=== PATIENT | female | born 1985 | race Caucasian/White ===

== ENCOUNTER → 2018-10-24 | Outpatient (CLI) | payer BC ==
--- NOTE | 2018-10-27 10:41 | USB ---
Reason for exam: clinical finding. History: Patient had 1st child at 28. Family history of breast cancer in paternal aunt Left breast cyst aspiration over 10 years ago benign. US Breast LT Left complete breast ultrasound includes all four quadrants, the retroareolar region and axilla. Finding demonstrates no cystic or solid lesion seen. These results were verbally communicated with the patient and result sheet given to the patient on 10/24/18. ASSESSMENT: Benign, BI-RAD 2 RECOMMENDATION: Clinical management of the left breast.
--- NOTE | 2018-10-28 11:38 | USB ---
Reason for exam: clinical finding. History: Patient is nulliparous. Family history of breast cancer. Physical Findings: Nurse did not find any significant physical abnormalities on exam. US Breast Axilla RT Right limited breast axilla ultrasound demonstrates a 2.3 x 0.9 x 1.1cm lymph node visualized. These results were verbally communicated with the patient and result sheet given to the patient on 10/24/18. ASSESSMENT: Benign, BI-RAD 2 RECOMMENDATION: Clinical management of the right breast. Manage patient on a clinical basis.
== END | disposition home or self-care (01) ==
LOC: RADMAMWWP 15:09
PROVIDERS: ATTEND Surgery
DX: N63.0 Unspecified lump in unspecified breast (principal); R22.9 Localized swelling, mass and lump, unspecified

== ENCOUNTER → 2018-10-24 | Outpatient (CLI) | payer BC ==
[2018-10-24 14:16] VITALS: BP 120/82; PULSE 87; RESP 18; BMI 32.1
--- NOTE | 2018-10-24 14:46 | P.GSHP ---
History of Present Illness H&P Date: 10/24/18 Chief Complaint: lump in her left breast Domi is a 33-year-old white female who states that approximately 2 weeks ago she noted a lump in her left breast. She is uncertain as to how long this is been present. She does not have any pain in her breast. She has not had any recent radiographic evaluation of the breast. She has no nipple discharge or skin changes. She has no history of any trauma to the breast. The lesion is located in the inferior aspect of the breast, she has had a cyst removed from this area about 14 years ago. Family History: maternal grandmother: lung cancer Hormonal History: menarche: 12 : 2, 1 child, 1 miscarriage, first born at 28, breast-fed: Negative periods: irregular BCP: none hormones: none Past surgical history: 1. Left breast cyst removed 2. Injury in her neck for an accessory salivary gland 3. ovarian cysts Past medical history: none Social history: Smoke: 3 cigarettes/day since 15 Alcohol: Negative Drugs: Negative - Constitutional Constitutional: Denies chills, Denies fever - EENT Eyes: denies blurred vision, denies pain Ears: deny: decreased hearing, tinnitus Ears, nose, mouth and throat: Denies headache, Denies sore throat - Breasts Breasts: bilateral: as per HPI - Cardiovascular Cardiovascular: Denies chest pain, Denies shortness of breath - Respiratory Respiratory: Denies cough, Denies 7 - Gastrointestinal Gastrointestinal: Denies abdominal pain, Denies diarrhea, Denies nausea, Denies vomiting - Genitourinary (Female) Genitourinary: Denies dysuria, Denies hematuria - Menstruation Menstruation: Reports cycle variable, Reports period heavy - Musculoskeletal Musculoskeletal: Denies myalgias - Integumentary Integumentary: Denies pruritus, Denies rash - Neurological Neurological: Denies numbness, Denies weakness - Psychiatric Psychiatric: Denies anxiety, Denies depression - Endocrine Endocrine: Denies fatigue, Denies weight change - Hematologic/Lymphatic Comment: none - Allergic/Immunologic Allergic/Immunologic: Reports seasonal allergies Past Medical History Past Medical History: No Reported History History of Any Multi-Drug Resistant Organisms: None Reported Additional Past Surgical History / Comment(s): neck-extra saliva gland Past Anesthesia/Blood Transfusion Reactions: No Reported Reaction Past Psychological History: No Psychological Hx Reported Smoking Status: Current every day smoker Past Drug Use History: None Reported - Past Family History Mother Family Medical History: Hypertension Father Family Medical History: Hypertension Medications and Allergies Home Medications Medication Instructions Recorded Confirmed Type No Known Home Medications 10/24/18 10/24/18 History Allergies Allergy/AdvReac Type Severity Reaction Status Date / Time No Known Allergies Allergy Verified 10/24/18 14:16 Surgical - Exam Vital Signs Pulse Resp BP Pulse Ox 87 18 120/82 98 10/24/18 14:09 10/24/18 14:09 10/24/18 14:09 10/24/18 14:09 - General well developed, well nourished, no distress - Eyes normal ocular movement - ENT no hearing loss, no congestion - Neck no masses, trachea midline - Respiratory normal respiratory effort, clear to auscultation - Cardiovascular Rhythm: regular Heart Sounds: normal: S1, S2 - Abdomen Abdomen: soft, non tender, no guarding, no rigid, no rebound - Integumentary normal turgor - Neurologic no disoriented, no combative - Musculoskeletal normal gait, normal posture - Psychiatric oriented to time, oriented to person, oriented to place, speech is normal, memory intact Breast examination: Right breast: Multiple positional exam no dominant masses or nodules of concern Right axilla: Axillary lymph node identified approximately 1-2 cm in size freely mobile Left breast: Multi-positional exam no dominant masses or nodules of concern noted other than an area in the inferior medial aspect which appears to be of increased nodularity and may represent a sebaceous cyst Left axilla: No adenopathy of concern Assessment and Plan Assessment: Impression: 1. Increased area of nodularity left breast inferior medial aspect 2. Axillary adenopathy right axilla 3. Irregular menstrual periods Plan: 1. Bilateral mammogram 2. Ultrasound right axilla, ultrasound left breast lower inner quadrant 3. Follow-up after results of mammogram and ultrasound obtained
== END ==
LOC: WWCWWP 13:52
PROVIDERS: ATTEND Surgery
DX: Z53.9 Procedure and treatment not carried out, unspecified reason (principal)

== ENCOUNTER → 2018-11-21 | Outpatient (CLI) | payer BC ==
--- NOTE | 2018-11-22 08:55 | MM ---
Reason for exam: clinical finding. History: Patient is nulliparous. Family history of breast cancer in paternal aunt at age 60. Benign excisional biopsy of the left breast, 2008. Physical Findings: Nurse did not find any significant physical abnormalities on exam. MG 3D Diag Mammo W/Cad FATMATA Bilateral CC and MLO view(s) were taken. XCCL view(s) were taken of the right breast. The breast tissue is heterogeneously dense. This may lower the sensitivity of mammography. There is no discrete abnormality. Superior anterior asymmetric density anterior left breast disperses on MLO DROSSER view. These results were verbally communicated with the patient and result sheet given to the patient on 11/21/18. ASSESSMENT: Negative, BI-RAD 1 RECOMMENDATION: Routine screening mammogram of both breasts at age 40. Patient should continue monthly self breast exams. A negative report should not preclude additional follow up of suspicious palpable abnormalities.
== END | disposition home or self-care (01) ==
LOC: RADMAMWWP 14:00
PROVIDERS: ATTEND Surgery
DX: N63.20 Unspecified lump in the left breast, unspecified quadrant (principal); N63.10 Unspecified lump in the right breast, unspecified quadrant
CPT/HCPCS: 77062; 77066

== ENCOUNTER 2019-09-07 20:06 | Outpatient (CLI) | payer BC ==
[2019-09-07] MEDS ORDERED: ONDANSETRON 4 MG/2 ML VIAL IM STA (20:48)
[2019-09-07] MEDS ORDERED: ONDANSETRON 4 MG/2 ML VIAL IVP STA (20:55)
[2019-09-07] MEDS: LACTATED RINGERS 1,000 ML IV SCH ×2 (21:04→22:47)
[2019-09-07 22:12] LABS: Appearance,Urine Cloudy (Clear); Bacteria,Urine Rare /hpf; Bilirubin,Urine Negative (Negative); Blood,Urine Negative (Negative); Color,Urine Yellow; Glucose,Urine (UA) Trace (Negative); Ketones,Urine 4+ (Negative); Leukocyte Esterase,Urine Negative (Negative); Mucus,Urine Many /hpf; Nitrite,Urine Negative (Negative); Protein,Urine 1+ (Negative); RBC,Urine 1 /hpf (0-5); Specific Gravity,Urine 1.032 (1.001-1.035); Squamous Epithelial Cell,Urine 2 /hpf (0-4); Urobilinogen,Urine <2.0 mg/dL (<2.0); WBC,Urine 3 /hpf (0-5)
[2019-09-07] MEDS ORDERED: TERBUTALINE 1 MG/ML VIAL SQ PRN (22:24)
[2019-09-07] MEDS ORDERED: LACTATED RINGERS 1,000 ML IV SCH (22:30)
[2019-09-08 01:30] VITALS: BP 128/58; PULSE 118; RESP 16; TEMP 97.7
--- NOTE | 2019-10-02 11:25 | P.MSEPDOC ---
Presenting Problems - Arrival Data Date of Arrival on Unit: 09/08/19 Time of Arrival on Unit: 20:06 Mode of Transport: Ambulatory - Complaint OB-Reason for Admission/Chief Complaint: Acute Nausea/Vomiting Medical History - Information : 3 Para: 2 Term: 0 : 0 Abortions: Spontaneous or Elective: 0 Number of Living Children: 2 - Gestational Age Gestational Age by MORRIS (wks/days): 34 Weeks and 6 Days Review of Systems - Review of Systems Constitutional: No problems Breast: No problems ENT: No problems Cardiovascular: No problems Respiratory: No problems Gastrointestinal: No problems Genitourinary: No problems Musculoskeletal: No problems Neurological: No problems Skin: No problems Vital Signs - Temperature Temperature: 97.7 F Temperature Source: Oral - Pulse Pulse Oximetery Pulse Rate: 118 Pulse Assessment Method: Pulse Oximetry - Respirations Respiratory Rate: 16 Oxygen Delivery Method: Room Air O2 Sat by Pulse Oximetry: 98 - Blood Pressure Right Arm Blood Pressure: 128/58 Blood Pressure Mean: 81 Blood Pressure Source: Automatic Cuff Medical Screen Scoring (Pre) - Cervical Exam Dilation: Exam Deferred Effacement: Exam Deferred Membranes: Intact - Uterine Contractions Frequency: N/A Duration: N/A Intensity: N/A - Maternal Vital Signs Maternal Temperature: N/A Maternal Blood Pressure: N/A Signs of Preeclampsia: N/A Maternal Respirations: N/A - Maternal Trauma Maternal Trauma: N/A - Assessment - Baby A Baseline FHR: 140 Heart Rate - NICHD Category: Category I (Normal) = 0 NST: Reactive Position: N/A Station: N/A - Total Score - Baby A Total Score - Baby A: 0 - Total Score - Baby B Total Score - Baby B: 0 - Total Score - Baby C Total Score - Baby C: 0 - Level of Risk - Baby A Level of Risk - Baby A: Low (0-5) - Level of Risk - Baby B Level of Risk - Baby B: Low (0-5) - Level of Risk - Baby C Level of Risk - Baby C: Low (0-5) Physician Notification (Pre) - Physician Notified Physician Notified Date: 09/07/19 Physician Notified Time: 20:40 New Order Received: Yes - Notification Comment Comment: Notified of nausea vomiting and contraction irritability. Notified of cervical exam closed thick and high. Disposition - Disposition OB Disposition: Triage, Discharge to home Transferred to:: home Discharge Date: 09/08/19 Discharge Time: 00:55 I agree with the RN Medical Screening Exam: Yes Risk & Benefit of care provided described in d/c instruction: Yes Diagnosis: VOMITING OF , UNSPECIFIED
== END 2019-09-08 00:55 | disposition home or self-care (01) ==
LOC: FBPOP 20:06
PROVIDERS: ATTEND Obstetrics & Gynecology Obstetrics
DX: O21.2 Late vomiting of pregnancy (principal); Z3A.34 34 weeks gestation of pregnancy
CPT/HCPCS: 99214; 96361; 96374; 81001; J3105; J2405; 59025

== ENCOUNTER 2019-09-17 13:25 | Outpatient (CLI) | payer BC ==
[2019-09-17 16:39] VITALS: BP 141/84; PULSE 91; RESP 16; TEMP 97.1
--- NOTE | 2019-10-03 07:58 | P.MSEPDOC ---
Presenting Problems - Arrival Data Date of Arrival on Unit: 09/17/19 Time of Arrival on Unit: 13:25 Mode of Transport: Ambulatory - Complaint OB-Reason for Admission/Chief Complaint: Possible Onset of Labor Medical History - Information : 3 Para: 1 Term: 1 : 0 Abortions: Spontaneous or Elective: 1 Number of Living Children: 1 - Gestational Age Gestational Age by MORRIS (wks/days): 36 Weeks and 1 Days Review of Systems - Review of Systems Constitutional: No problems Breast: No problems ENT: No problems Cardiovascular: No problems Respiratory: No problems Gastrointestinal: No problems Genitourinary: No problems Musculoskeletal: No problems Neurological: No problems Skin: No problems Vital Signs - Temperature Temperature: 97.1 F Temperature Source: Temporal Artery Scan - Pulse Right Sitting Pulse Rate: 91 Pulse Assessment Method: Automatic Cuff - Respirations Respiratory Rate: 16 Oxygen Delivery Method: Room Air - Blood Pressure Right Arm Blood Pressure: 141/84 Blood Pressure Mean: 103 Blood Pressure Source: Automatic Cuff Medical Screen Scoring (Pre) - Cervical Exam Dilation: 1-3 cm = 1 Effacement: More than 50% = 2 Membranes: Intact - Uterine Contractions Frequency: > 5 minutes apart = 1 Duration: > 40 seconds = 2 Intensity: N/A - Maternal Vital Signs Maternal Temperature: N/A Maternal Blood Pressure: N/A Signs of Preeclampsia: N/A Maternal Respirations: N/A - Maternal Trauma Maternal Trauma: N/A - Assessment - Baby A Baseline FHR: 13 Heart Rate - NICHD Category: Category I (Normal) = 0 NST: Reactive Position: N/A Station: N/A - Total Score - Baby A Total Score - Baby A: 6 - Total Score - Baby B Total Score - Baby B: 6 - Total Score - Baby C Total Score - Baby C: 6 - Level of Risk - Baby A Level of Risk - Baby A: Medium (6-9) - Level of Risk - Baby B Level of Risk - Baby B: Medium (6-9) - Level of Risk - Baby C Level of Risk - Baby C: Medium (6-9) Physician Notification (Pre) - Physician Notified Physician Notified Date: 09/17/19 Physician Notified Time: 15:22 New Order Received: Yes (d/c home) Disposition - Disposition OB Disposition: Physician follow up in office, Discharge to home Discharge Date: 09/17/19 Discharge Time: 15:25 I agree with the RN Medical Screening Exam: Yes Risk & Benefit of care provided described in d/c instruction: Yes Diagnosis: FALSE LABOR BEFORE 37 COMPLETED WEEKS OF GEST, THIRD TRI
== END 2019-09-17 15:25 | disposition home or self-care (01) ==
LOC: FBPOP 13:25
PROVIDERS: ATTEND Obstetrics & Gynecology
DX: O47.03 False labor before 37 completed weeks of gestation, third trimester (principal); Z3A.36 36 weeks gestation of pregnancy
CPT/HCPCS: 59025; 99213

== ENCOUNTER 2019-10-07 06:02 | Inpatient (IN) | payer BC ==
[2019-10-07] MEDS ORDERED: METHYLERGONOVINE 0.2 MG/ML 1 ML AMP IM PRN (06:17)
[2019-10-07] MEDS ORDERED: OXYTOCIN 10 UNIT/ML 1 ML VIAL IM PRN (06:17)
[2019-10-07] MEDS ORDERED: LIDOCAINE 0.5% (PF) 5 MG/ML (50 ML SDV) SQ PRN (06:17)
[2019-10-07] MEDS ORDERED: TERBUTALINE 1 MG/ML VIAL SQ PRN (06:17)
[2019-10-07] MEDS ORDERED: CARBOPROST TROMETHAMINE 250 MCG/ML 1 ML AMP IM PRN (06:17)
[2019-10-07] MEDS ORDERED: OXYTOCIN 30 UNITS/500 ML NS 30 UNIT in SALINE 1 500ML.BAG IV SCH (06:30)
[2019-10-07] MEDS: LACTATED RINGERS 1,000 ML IV SCH ×2 (06:37→12:00)
[2019-10-07 06:48] LABS: Basophils # (A) 0.1 k/uL (0-0.2); Basophils % (A) 1 %; Eosinophils # (A) 0.2 k/uL (0-0.7); Eosinophils % (A) 2 %; HCT 34.4 % (34.0-46.0); HGB 11.4 gm/dL (11.4-16.0); Hypochromasia Slight; Lymphocytes # (A) 2.1 k/uL (1.0-4.8); Lymphocytes % (A) 20 %; MCH 28.2 pg (25.0-35.0); MCHC 33.1 g/dL (31.0-37.0); MCV 85.1 fL (80.0-100.0); Mean Platelet Volume 7.2; Monocytes # (A) 0.5 k/uL (0-1.0); Monocytes % (A) 5 %; Neutrophils # (A) 7.2 k/uL (1.3-7.7); Neutrophils % (A) 70 %; Platelet Count 455 k/uL (150-450); Poikilocytosis Slight; RBC 4.05 m/uL (3.80-5.40); RDW 13.8 % (11.5-15.5); WBC 10.3 k/uL (3.8-10.6)
--- NOTE | 2019-10-07 06:58 | P.HPOB ---
History of Present Illness H&P Date: 10/07/19 This is a 34-year-old white female 3 para 1011 EDC 10/14/2019 at 39 weeks gestation. Patient presents today for induction with favorable multiparous cervix. History is significant for preeclampsia in the past, blood pressure normal with this . Patient admits to mild uterine contr actions, fetus is been active throughout the . Past medical history is significant for preeclampsia in the past. Past surgical history benign breast lump removed, salivary gland excision. Current medications Zofran 8 mg when necessary, vitamin daily. ALLERGIES none known. Family history significant for hypertension. Reproductive history significant for vaginal delivery 2013, female , history of preeclampsia. Social history patient is a former tobacco and marijuana smoker, she is , she denies alcohol or drug use. history is significant for blood type O positive, rubella status immune. Gonorrhea and chlamydia cultures, HIV testing, hepatitis B surface antigen, urine culture, group B strep cultures all negative. One-hour Glucola 111. On exam this is a pleasant white female who is 5 foot 1 inch, 194 pounds, blood pressure on admission 141/81. General physical exam is within normal limits. Cervix is 4-5 cm dilated, 70% effaced, vertex presentation, -2 station, soft and anterior. Artificial amniorrhexis reveals clear fluid. heart rate is in the 130s baseline with frequent accelerations consistent with reactive NST. Uterine contractions are occurring mildly, approximately every 5 minutes apart. Impression: 39 week intrauterine , favorable multiparous cervix, history of preeclampsia but normotensive at this time, for elective induction. Plan: Continue close maternal and surveillance. Oxytocin per hospital protocol. Anticipate normal spontaneous vaginal delivery. Review of Systems Constitutional: Reports as per HPI Past Medical History Past Medical History: No Reported History History of Any Multi-Drug Resistant Organisms: None Reported Additional Past Surgical History / Comment(s): neck-extra saliva gland, lump removed from left breast Past Anesthesia/Blood Transfusion Reactions: No Reported Reaction Smoking Status: Light tobacco smoker - Past Family History Mother Family Medical History: Hypertension Father Family Medical History: Hypertension Medications and Allergies Home Medications Medication Instructions Recorded Confirmed Type No Known Home Medications 10/24/18 10/07/19 History Allergies Allergy/AdvReac Type Severity Reaction Status Date / Time No Known Allergies Allergy Verified 09/17/19 13:51 Exam Intake and Output 10/06/19 10/06/19 10/07/19 14:59 22:59 06:59 Other: Weight 87.997 kg See dictation under HPI please Results Result Diagrams: 10/07/19 06:34 Abnormal Lab Results - Last 24 Hours (Table) 10/07/19 Range/Units 06:34 Plt Count 455 H (150-450) k/uL Assessment and Plan Assessment: 39 week intrauterine , here for elective induction of labor, all signs reassuring. Plan: Oxytocin per hospital protocol. Close maternal and surveillance. Analgesic options have been reviewed with the patient. Anticipate normal spontaneous vaginal delivery. Time with Patient: Less than 30
[2019-10-07] MEDS ORDERED: ACETAMINOPHEN TAB 325 MG TAB PO PRN (14:35)
[2019-10-07] MEDS ORDERED: HYDROCORTISONE 2.5% RECTAL CREAM 30 GM TUBE RECTAL PRN (14:35)
[2019-10-07] MEDS ORDERED: BENZOCAINE/MENTHOL SPRAY 1 GM/SPRAY AEROSOL TOPICAL PRN (14:35)
[2019-10-07] MEDS ORDERED: WITCH HAZEL 1 EACH MED..PAD TOPICAL PRN (14:35)
[2019-10-07] MEDS ORDERED: diphenhydrAMINE 50 MG/ML 1 ML VIAL IVP PRN ×2 (14:35)
[2019-10-07] MEDS ORDERED: LANOLIN CREAM 5 GM TUBE TOPICAL PRN (14:35)
[2019-10-07] MEDS ORDERED: SIMETHICONE 80 MG CHEWABLE PO PRN (14:35)
[2019-10-07] MEDS ORDERED: diphenhydrAMINE 50 MG CAP PO PRN (14:35)
[2019-10-07] MEDS ORDERED: IBUPROFEN 600 MG TAB PO PRN (14:35)
[2019-10-07] MEDS ORDERED: ZOLPIDEM 5 MG TAB PO PRN (14:35)
[2019-10-07] MEDS ORDERED: diphenhydrAMINE 25 MG CAP PO PRN (14:35)
--- NOTE | 2019-10-07 14:35 | P.PROBDLV ---
Vaginal Delivery Note - . Vaginal Delivery Note: This is a 34-year-old white female 3 para 1011 EDC 10/14/2019 at 39 weeks gestation. Patient presented for induction with favorable multiparous cervix. Fetus is been active throughout the . Blood type is O+, group B strep cultures negative, rubella status immune. Please see dictated history and physical for details. Oxytocin was started and titrated per hospital protocol. She became uncomfortable and requested epidural, this was placed without difficulty per the anesthesia staff. She progressed well through the first stage of labor was judged to be completely dilated at 1400 hrs. She began the second stage of labor at that time. Perineal body was prepped and draped in usual sterile fashion. With excellent maternal expulsive efforts the infant's head delivered occiput anterior and the immediate "turtle sign" was noted. The was a tight nuchal cord 1 that was reduced. An exaggerated Nikita maneuver was performed, along with suprapubic pressure. With gentle downward traction no shoulder movement was noted. Attempt was made to deliver the posterior shoulder and this was unsuccessful. At this time the with corkscrew maneuver was quickly employed with excellent results. The right or anterior shoulder was delivered then from underneath the pubic symphysis at which time the oropharynx, nasopharynx, and external nares were bulb suctioned on the perineal body. Patient was officially delivered of a liveborn female infant at 1413 hrs. Umbilical cord was doubly clamped and ligated, she was handed to waiting nurses for evaluation where scores of 8 and 9 at one and 5 minutes respectively were given. weighed 7 lbs. 7 oz. or 3380 g. Placenta delivered spontaneously, it was inspected and noted to be intact with trivascular cord at 1415 hours. At this time inspection of the cervix, vagina, perineum, corby urethral, and perirectal areas revealed no lacerations or defects. There is a large verruca void appearing lesion of the left vulva. This is prepped and draped. Informed consent is reviewed signed witnessed and dated. Because the patient has complete analgesia, the lesion is removed with a single snip at the base and sent to pathology for evaluation. A single [id number] suture of Rapide is placed on the lesion base for excellent reapproximation. All sponge needle and enhancement counts are correct at the end of our procedure. Total estimated blood loss 300 mL's. Patient and her and family are allowed to begin the bonding experience in the LDR.
[2019-10-07] MEDS ORDERED: OXYTOCIN 20 UNITS/1000 ML NS 1,000 ML IV SCH (14:45)
[2019-10-07 16:57] VITALS: RESP 16
[2019-10-07 20:02] LABS: Uric Acid 3.5 mg/dL (3.7-7.4)
[2019-10-07] MEDS: SENNOSIDES-DOCUSATE SODIUM 1 EACH TAB PO SCH (20:17)
[2019-10-08 06:44] LABS: Basophils # (A) 0.1 k/uL (0-0.2); Basophils % (A) 1 %; Eosinophils # (A) 0.1 k/uL (0-0.7); Eosinophils % (A) 1 %; HCT 29.3 % (34.0-46.0); Hypochromasia Slight; Lymphocytes # (A) 1.6 k/uL (1.0-4.8); Lymphocytes % (A) 12 %; MCH 27.8 pg (25.0-35.0); MCHC 32.6 g/dL (31.0-37.0); MCV 85.2 fL (80.0-100.0); Mean Platelet Volume 7.5; Monocytes # (A) 0.5 k/uL (0-1.0); Monocytes % (A) 4 %; Neutrophils # (A) 10.6 k/uL (1.3-7.7); Neutrophils % (A) 81 %; Platelet Count 382 k/uL (150-450); Poikilocytosis Slight; RBC 3.44 m/uL (3.80-5.40)
[2019-10-08 06:50] LABS: HGB 9.6 gm/dL (11.4-16.0)
--- NOTE | 2019-10-08 07:57 | P.DS ---
Providers Date of admission: 10/07/19 06:02 Expected date of discharge: 10/08/19 Attending physician: Sheyla Coffman Primary care physician: Stated None Hospital Course: This is a 34-year-old white female 3 para 1011 EDC 10/14/2021 presented at 39 weeks gestation for induction with favorable multiparous cervix. is essentially unremarkable, rubella status immune, group strep cultures negative, blood type O positive. Please see my dictated history and physical for details. Artificial amniorrhexis revealed clear fluid. Oxytocin was started and titrated per hospital protocol. Epidural was placed per her request. Patient went on to deliver a liveborn female infant with scores of 8 and 9 at one and 5 minutes respectively. There was a mild shoulder dystocia encountered and easily managed, please see my dictated delivery note for details. Infant weighed 7 lbs. 7 oz. or 3380 g. Estimated blood loss recorded of 300 mL's. This morning the patient is doing well. She is voiding, ambulating and passing flatus without difficulty. Vital signs are stable and she is afebrile. Fundus is firm and in the midline, symmetric and 18 week size. Extremities are negative for edema. Breasts are not engorged. Lochia rubra is minimal to moderate. Pain is well-controlled with ibuprofen. Patient is judged to be in very good condition for discharge home. She will follow-up with me in the office in 6 weeks. We have reviewed options for contraception and she will consider this with her and we will discuss it further at the 6 week visit. She is reminded no intercourse, tampons or douching. She will use [id number] Advil or Aleve, or ibuprofen as needed for pain. She will call with any fevers shakes or chills, foul smelling or copious lochia, with the passage of large blood clots, with any pain not alleviated by [id number] products, or indeed with any concerns. infant will follow-up with teacher lip reading as per recommendations. Patient Condition at Discharge: Good Plan - Discharge Summary New Discharge Prescriptions: No Action No Known Home Medications Discharge Medication List No Known Home Medications 10/24/18 [History] Follow up Appointment(s)/Referral(s): Sheyla Coffman MD [STAFF PHYSICIAN] - 6 Weeks Discharge Disposition: HOME SELF-CARE
[2019-10-08 08:29] VITALS: BP 136/74; PULSE 76; TEMP 98
[2019-10-08] MEDS: SENNOSIDES-DOCUSATE SODIUM 1 EACH TAB PO SCH (08:29)
[2019-10-08] MEDS ORDERED: ROPIVACAINE 100 MG, fentaNYL (PF) 200 MCG in SODIUM CHLORIDE 0.9% 76 ML EPIDURAL ONE (08:31)
== END 2019-10-08 15:53 | disposition home or self-care (01) | DRG 806 ==
LOC: 4FBP 06:02
PROVIDERS: ADMIT Obstetrics & Gynecology; ATTEND Obstetrics & Gynecology
PROC: 10E0XZZ Delivery of Products of Conception, External Approach (ICD-10-PCS; principal; 2019-10-07)
PROC: 3E033VJ Introduction of Other Hormone into Peripheral Vein, Percutaneous Approach (ICD-10-PCS; 2019-10-07)
PROC: 00HU33Z Insertion of Infusion Device into Spinal Canal, Percutaneous Approach (ICD-10-PCS; 2019-10-07)
PROC: 3E0R3BZ Introduction of Anesthetic Agent into Spinal Canal, Percutaneous Approach (ICD-10-PCS; 2019-10-07)
DX: O69.1XX0 Labor and delivery complicated by cord around neck, with compression, not applicable or unspecified (principal); O98.52 Other viral diseases complicating childbirth; Z37.0 Single live birth; B07.9 Viral wart, unspecified; O99.334 Smoking (tobacco) complicating childbirth; F17.200 Nicotine dependence, unspecified, uncomplicated; Z3A.39 39 weeks gestation of pregnancy; Z82.49 Family history of ischemic heart disease and other diseases of the circulatory system
CPT/HCPCS: 84450; 84460; 84550; 85025; 86850; 86900; 86901; 88305

== ENCOUNTER 2021-04-16 20:04 | Emergency (ER) | payer BC ==
[2021-04-16 20:09] VITALS: BP 146/93; PULSE 105; RESP 18; TEMP 98.2
--- NOTE | 2021-04-16 22:15 | ED ---
Eye Problem HPI - General Source: patient, family Mode of arrival: ambulatory Limitations: no limitations <Jesica Menjivar - Last Filed: 04/17/21 02:35> <Gala Trivedi - Last Filed: 04/17/21 23:15> - General Chief complaint: Eye Problems Stated complaint: vision problems in r eye Time Seen by Provider: 04/16/21 20:27 - History of Present Illness Initial comments: 35 year-old female patient presents to the emergency department for evaluation of double vision to the right eye. Patient states that symptoms started suddenly an hour ago. Denies any injury or trauma. Denies any pain or pressure to the eyes. Denies fever or chills. Denies any symptoms in the left eye. States that the double vision is side by side. Denies history of similar symptoms. Does wear glasses. No recent prescription change. Denies any medical conditions, does not take any medications. Patient states there is a chance of . (Jesica Menjivar) - Related Data Home Medications Medication Instructions Recorded Confirmed No Known Home Medications 10/24/18 10/07/19 Allergies Allergy/AdvReac Type Severity Reaction Status Date / Time No Known Allergies Allergy Verified 04/16/21 20:09 Review of Systems ROS Other: All systems not noted in ROS Statement are negative. <Jesica Menjivar - Last Filed: 04/17/21 02:35> ROS Other: All systems not noted in ROS Statement are negative. <Gala Trivedi - Last Filed: 04/17/21 23:15> ROS Statement: Those systems with pertinent positive or pertinent negative responses have been documented in the HPI. Past Medical History Past Medical History: No Reported History History of Any Multi-Drug Resistant Organisms: None Reported Additional Past Surgical History / Comment(s): neck-extra saliva gland, lump removed from left breast Past Anesthesia/Blood Transfusion Reactions: No Reported Reaction Past Psychological History: No Psychological Hx Reported Smoking Status: Current every day smoker Past Alcohol Use History: None Reported Past Drug Use History: Marijuana - Past Family History Mother Family Medical History: Hypertension Father Family Medical History: Hypertension <Jesica Menjivar - Last Filed: 04/17/21 02:35> General Exam Limitations: no limitations General appearance: alert, in no apparent distress, other (This is a well- developed, well-nourished adult female patient in no acute distress. Vital signs upon presentation are temperature 98.2F, pulse 105, respirations 18, blood pressure 146/93, pulse ox 100% on room air.) Eye exam: Present: normal appearance, PERRL, EOMI. Absent: scleral icterus, conjunctival injection, periorbital swelling Expanded Visual acuity (R) = 20/: 30 Visual acuity (L) = 20/: 13 With correction: Yes ENT exam: Present: normal exam, normal oropharynx, mucous membranes moist Respiratory exam: Present: normal lung sounds bilaterally. Absent: respiratory distress, wheezes, rales, rhonchi, stridor Cardiovascular Exam: Present: regular rate, normal rhythm, normal heart sounds. Absent: systolic murmur, diastolic murmur, rubs, gallop, clicks Neurological exam: Present: alert, oriented X3, CN II-XII intact Psychiatric exam: Present: normal affect, normal mood Skin exam: Present: warm, dry, intact, normal color. Absent: rash <Jesica Menjivar - Last Filed: 04/17/21 02:35> Course Vital Signs 04/16/21 20:06 Temperature 98.2 F Pulse Rate 105 H Respiratory 18 Rate Blood Pressure 146/93 O2 Sat by Pulse 100 Oximetry Medical Decision Making <Jesica Menjivar - Last Filed: 04/17/21 02:35> <Gala Trivedi - Last Filed: 04/17/21 23:15> - Medical Decision Making 35-year-old female patient presents to the emergency department today reporting double vision to the right eye. Physical examination is unremarkable. She is neurologically intact with no focal deficits. She had no injury. I did discuss the case with Dr. Jim. States if her symptoms are still present on Sunday to follow up in his office. She'll be discharged with follow-up as discussed. Return parameters were discussed in detail. She verbalizes understanding and agrees with this plan. Case discussed with my attending Dr. Trivedi. (Jesica Menjivar) I was available for consultation in the emergency department. The history and physical exam were done by the midlevel provider. I was consulted for this patients care. I reviewed the case with the midlevel provider and based on their presentation of the patient, I agree with the assessment, medical decision making and plan of care as documented. Chart was dictated using [employer] dictation software. Attempts were made to correct any dictation errors however some typographical errors may persist. (Gala Trivedi) - Lab Data Lab Results 04/16/21 Range/Units 21:26 Urine HCG, Qual Not Detected (Not Detectd) Disposition Is patient prescribed a controlled substance at d/c from ED?: No Time of Disposition: 22:15 <Jesica Menjivar - Last Filed: 04/17/21 02:35> <Gala Trivedi - Last Filed: 04/17/21 23:15> Clinical Impression: Monocular diplopia, right eye Disposition: HOME SELF-CARE Condition: Good Instructions (If sedation given, give patient instructions): Diplopia (ED) Additional Instructions: Follow-up with ophthalmology on Sunday for symptoms persist. Return for any new, worsening, or concerning symptoms Referrals: Ryan Atkinson [Primary Care Provider] - 1-2 days Jayson Jim MD [STAFF PHYSICIAN] - 1-2 days
== END 2021-04-16 22:22 | disposition home or self-care (01) ==
LOC: EC 20:04
DX: H53.2 Diplopia (principal); F17.200 Nicotine dependence, unspecified, uncomplicated; F12.90 Cannabis use, unspecified, uncomplicated
CPT/HCPCS: 81025; 99284